=== PATIENT | male | born 1945 | race Caucasian/White ===

== ENCOUNTER 2021-12-21 08:26 | Outpatient (CLI) | payer OTHER, SELFPAY ==
[2021-12-21 09:25] LABS: Prostate Specific AG Urology 4.79 ng/mL (0-4)
== END 2021-12-21 08:27 | disposition home or self-care (01) ==
LOC: LAB 08:29
PROVIDERS: PCP Internal Medicine Medical Oncology; Visit Provider Urology
DX: R97.20 Elevated prostate specific antigen [PSA] (principal)
CPT/HCPCS: 84153

== ENCOUNTER → 2021-12-28 08:28 | Outpatient (BNVA) | payer OTHER, SELFPAY | PROVIDERS: PCP Internal Medicine Medical Oncology; Visit Provider Urology | DX: C61 Malignant neoplasm of prostate (principal); R97.21 Rising PSA following treatment for malignant neoplasm of prostate | CPT/HCPCS: 51798; 99203 ==

== ENCOUNTER 2022-04-03 08:45 | Outpatient (CLI) | payer OTHER, SELFPAY ==
[2022-04-03 10:15] LABS: Prostate Specific AG Urology 5.79 ng/mL (0-4)
== END 2022-04-03 08:46 | disposition home or self-care (01) ==
PROVIDERS: PCP Internal Medicine Medical Oncology; Visit Provider Urology
DX: R97.21 Rising PSA following treatment for malignant neoplasm of prostate (principal)
CPT/HCPCS: 84153

== ENCOUNTER → 2022-04-10 10:41 | Outpatient (BNVA) | payer OTHER, SELFPAY | PROVIDERS: Visit Provider Urology | DX: C61 Malignant neoplasm of prostate (principal); R97.21 Rising PSA following treatment for malignant neoplasm of prostate | CPT/HCPCS: 99213 ==

== ENCOUNTER → 2023-02-19 11:41 | Outpatient (BNVA) | payer OTHER, SELFPAY | PROVIDERS: PCP Emergency Medicine Emergency Medical Services; Referring Provider Emergency Medicine Emergency Medical Services; Visit Provider Internal Medicine Cardiovascular Disease | DX: R07.9 Chest pain, unspecified (principal); I25.10 Atherosclerotic heart disease of native coronary artery without angina pectoris; I25.5 Ischemic cardiomyopathy; R97.21 Rising PSA following treatment for malignant neoplasm of prostate; E78.5 Hyperlipidemia, unspecified; E03.9 Hypothyroidism, unspecified; I73.9 Peripheral vascular disease, unspecified; Z87.891 Personal history of nicotine dependence; R00.1 Bradycardia, unspecified | CPT/HCPCS: 93005; 99204 ==

== ENCOUNTER 2023-03-05 10:15 | Outpatient (CLI) | payer OTHER, SELFPAY ==
--- NOTE | 2023-03-05 10:15 | USCV_ITS ---
Kenny Burrell Age: 77 Gender: M : 1945 Exam Date: 03/05/2023 11:06 Ordering Phys: Diego Talavera MD ([email or web address]) Technologist: CT Exam Location: [facility] [place] Indication: sob BP: 138 / 70 HR: 62 Rhythm: Sinus Technical Quality: Adequate MEASUREMENTS (Male / Female) Normal Values 2D ECHO LV Chamber Size 5.7 cm RV Chamber Size 3.5 cm LVOT Diameter 2.3 cm LV Ejection Fraction MOD 2C 53.7 % LV Ejection Fraction 2C AL 53.1 % LA Diameter 4.9 cm LA Width 4.9 cm LA Height 5.4 cm RA Width 3.6 cm RA Height 5.3 cm Aorta at Sinotubular Diameter 2.5 cm IVC Diameter 1.9 cm M-MODE Aortic Annulus Diameter 3.9 cm LA Ao Ratio MM 1.3 MV E Point Septal Separation 1.6 cm DOPPLER AV Peak Velocity 212.0 cm/s LVOT Peak Velocity 121.0 cm/s AV Area Cont Eq vti 2.3 cm squared AV Area Cont Eq pk 2.5 cm squared MV E' Velocity 10.0 cm/s TR Peak Velocity 110.7 cm/s TR Peak Gradient 4.9 mmHg TV Peak E Velocity 73.0 cm/s Right Atrial Pressure 3.0 mmHg Pulmonary Artery Systolic Pressu 7.9 mmHg PV Peak Velocity 100.0 cm/s FINDINGS Left Ventricle Normal left ventricular size and systolic function, EF 55% . Mild hypokinesia of the basal septal segment.Grade I/IV diastolic dysfunction (abnormal relaxation filling pattern), normal to mildly elevated filling pressures. Right Ventricle The right ventricle is normal in size and function. Right Atrium The right atrium is normal in size. Left Atrium Mildly increased left atrial size. Mitral Valve No gross abnormalities noted Aortic Valve Thickened aortic valve. Somewhat restricted aortic valve mobility Tricuspid Valve No gross abnormalities noted Pulmonic Valve Pulmonic valve not well visualized. Pericardium Normal pericardium without effusion. Aorta Normal ascending aorta dimension. IVC Normal inferior vena cava. CONCLUSIONS Normal left ventricular size and systolic function, EF 55% . Mild hypokinesia of the basal septal segment.Grade I/IV diastolic dysfunction (abnormal relaxation filling pattern), normal to mildly elevated filling pressures. Mildly increased left atrial size. Features of aortic valve sclerosis. There is no pericardial effusion. There are no intracardiac masses. No similar previous studies are available for comparison Dr Diego Talavera MD [facility] (Electronically Signed) Final Date: 06 March 2023 08:53 S
--- NOTE | 2023-03-05 11:00 | USCV_ITS ---
Kenny Burrell Age: 77 Gender: M : 1945 Exam Date: 03/05/2023 10:26 Ordering Phys: Diego Talavera MD ([email or web address]) Technologist: CT Exam Location: [facility] [place] Indication: leg pain Risk Factors: Previous Vascular Surgery: RIGHT LEFT BP: 148.0 / 81.00 BP: 141.0/ 82.00 0 0 Waveform Velocity (cm/s) Velocity (cm/s) Waveform Biphasic 99.3 Iliac Prox 62.6 Biphasic Biphasic 113.1 Iliac Mid 69.5 Biphasic Biphasic 103.5 Iliac Distal 87.7 Biphasic Biphasic 87.8 SENIOR ANALYST PROGRAMMER 88.8 Biphasic Biphasic 72.6 SFA Prox 78.3 Biphasic Triphasic 85.9 SFA Mid 72.9 Biphasic Biphasic 112.1 SFA Dist 101.2 Biphasic Biphasic 68.7 POP 69.5 Biphasic Biphasic 55.5 SPIRAL MACHINE OPERATOR 33.1 Biphasic Biphasic 47.9 DPA 58.8 Biphasic 1.1 ALESSANDRA 0.9 FINDINGS Hypoechoic area in the in the left popliteal region measuring 4.9 x 1.8 cm. Multiple echogenic lesions were noted in this area Mild to moderate plaques are noted in the iliac femoral arteries bilaterally Resting ALESSANDRA 1.1 on the right and 0.9 on the left CONCLUSIONS 1. Mild to moderate plaques in the iliac and femoral arteries bilaterally 2. Normal resting ALESSANDRA on the right side suggesting no significant arterial obstruction. 3. Slightly diminished resting ALESSANDRA on the left side, suggesting mild peripheral artery disease 4. Mixed echogenic lesion in the left popliteal region suggesting a cyst or other soft tissue masses. Consider MRI to better evaluate this lesion. No similar previous studies are available for comparison Dr Diego Talavera MD [facility] (Electronically Signed) Final Date: 06 March 2023 08:41 S
== END 2023-03-05 10:16 | disposition home or self-care (01) ==
LOC: RAD 10:15
PROVIDERS: PCP Emergency Medicine Emergency Medical Services; Visit Provider Internal Medicine Cardiovascular Disease
DX: I50.30 Unspecified diastolic (congestive) heart failure (principal); I42.9 Cardiomyopathy, unspecified; R06.09 Other forms of dyspnea; R06.02 Shortness of breath; I51.7 Cardiomegaly; I70.203 Unspecified atherosclerosis of native arteries of extremities, bilateral legs; M79.605 Pain in left leg; M79.604 Pain in right leg
CPT/HCPCS: 93306; 93925

== ENCOUNTER 2023-03-07 09:38 | Outpatient (CLI) | payer OTHER, SELFPAY ==
--- NOTE | 2023-03-07 | ECG_ITS ---
[facility] Test Date: 2023-03-07 Pat Name: Kenny Burrell Department: Room: Gender: Male [employer]: : 1945 Requested By: Diego Talavera Order Number: [id number] Susan MD: Hallie Maldonado M.D. Interpretive Statements NAME OF STUDY: LEXISCAN SESTAMIBI STRESS TEST INDICATION: Dyspnea on Exertion PROCEDURE: At the baseline, the blood pressure was 140/77 mmHg with a heart rate of 58 beats per min. The electrocardiogram showed sinus bradycardia, normal axis with nonspecific ST depression.. ??? The Lexiscan was infused over a period of 20 seconds. A total of 0.4 milligrams of Lexiscan was infused. The stress phase was continued for a total of 5 minutes. Heart rate at the end of the stress phase was 69 beats per min with a blood pressure of 145/81 mmHg. The EKG at the peak infusion revealed sinus rhythm with no significant ST-T wave changes. Isolated PVCs new noted during Lexiscan infusion. Study was terminated due to protocol completion. ??? Sestamibi was injected 20 seconds after the Lexiscan infusion. Isolated PVCs noted in recovery. ??? Blood pressure at the end of the recovery phase was 144/72 mmHg with a heart rate of 68 beats per minute. ??? CONCLUSION: 1. Normal EKG response to LexiScan infusion. 2. No LexiScan induced chest pain or cardiac arrhythmia. 3. Normal blood pressure and heart rate response. 4. Sestamibi/sestamibi perfusion scan pending; see separate report. Electronically Signed On 03-08-2023 9:47:35 CYBER INTELLIGENCE ANALYST by Hallie Maldonado M.D. [id number]
[2023-03-07 09:49] VITALS: BMI 36.9
--- NOTE | 2023-03-07 09:53 | NMCV_ITS ---
NM argenis perf SPECT r/s* [id number] Kenny Burrell Age: 77 Gender: M : 1945 Exam Date: 03/07/2023 10:29 Ordering Phys: Diego Talavera MD ([email or web address]) Technologist: BETO Stahl Exam Location: [facility] Indications: CP STRESS TEST [facility] IMAGE PROTOCOL Rest/Stress 1 Lexiscan Day Radiopharmaceutical Dose (mCi) Administration Site Administered by Rest: Tc-99m 10.7 IV BETO Stahl Sestamibi Stress:Tc-99m 32.8 IV BETO Stahl Sestamibi Rest: 07-Mar-2023 60 Discovery 630 Stress: 07-Mar-2023 30 Discovery 630 0.4mg Lexiscan. Images obtained in supine and prone position. SPECT RESULTS Technical Quality: Good Raw Data Analysis: Normal Image Corrections: No attenuation or motion correction applied Summed Stress Score: 12 Summed Rest Score: 13 Summed Difference Score: 0 PERFUSION FINDINGS Moderate area of moderate to severely decreased tracer uptake was noted in the basal and mid inferolateral, anterolateral and apical lateral regions. No significant reversibility was noted in these regions FUNCTIONAL RESULTS (calculated via Gated SPECT) Stress Image LV EF (%): 53 Stress EDV (mL):128 TID: 1.11 Stress ESV (mL):60 FUNCTIONAL FINDINGS: Segmental wall motion analysis revealing no gross wall motion abnormalities IMPRESSIONS 1. Myocardial perfusion imaging revealing moderate area of persistent decreased tracer uptake involving the inferolateral, anterolateral and apical lateral regions, suggesting myocardial scarring in the distribution of the left circumflex/right coronary artery/attenuation artifact 2. Normal LV ejection fraction of 53%. 3. LV wall motion analysis revealing no gross wall motion abnormalities. 4. Mildly dilated LV cavity. Low probability for coronary ischemia, based on the above findings Dr Diego Talavera MD [facility] (Electronically Signed) Final Date: 07 March 2023 15:24 S
[2023-03-07] MEDS: regadenoson 0.4 Mg/5 ml Syringe IVP (11:12)
[2023-03-07 11:36] VITALS: BP 148/73; PULSE 72
== END 2023-03-07 09:39 | disposition home or self-care (01) ==
LOC: CDL 09:39
PROVIDERS: PCP Emergency Medicine Emergency Medical Services; Visit Provider Internal Medicine Cardiovascular Disease
DX: R07.9 Chest pain, unspecified (principal); R06.09 Other forms of dyspnea; I51.7 Cardiomegaly
CPT/HCPCS: 36415; 78452; 93017; 96374; A9500; J2785

== ENCOUNTER → 2023-05-27 14:52 | Outpatient (BNVA) | payer OTHER, SELFPAY | PROVIDERS: PCP Emergency Medicine Emergency Medical Services; Visit Provider Internal Medicine Cardiovascular Disease | DX: I25.10 Atherosclerotic heart disease of native coronary artery without angina pectoris (principal); E78.2 Mixed hyperlipidemia; I25.5 Ischemic cardiomyopathy; I73.9 Peripheral vascular disease, unspecified; E03.9 Hypothyroidism, unspecified; I10 Essential (primary) hypertension; Z87.891 Personal history of nicotine dependence | CPT/HCPCS: 99214 ==

== ENCOUNTER → 2023-11-12 09:00 | Outpatient (BNVA) | payer OTHER, SELFPAY | PROVIDERS: PCP Emergency Medicine Emergency Medical Services; Visit Provider Nurse Practitioner Family | DX: I25.10 Atherosclerotic heart disease of native coronary artery without angina pectoris (principal); I10 Essential (primary) hypertension | CPT/HCPCS: 99214 ==